=== PATIENT | male | born 1995 | race Caucasian/White ===

== ENCOUNTER 2021-01-01 12:15 | Emergency (ER) | payer OTHER ==
[2021-01-01] MEDS ORDERED: Lidocaine 1% 30 ML SDV INJECT ONE (12:30)
--- NOTE | 2021-01-03 06:44 | EDM.PDOC ---
ED HPI GENERAL MEDICAL PROBLEM - General Chief Complaint: Laceration Stated Complaint: LACERATION TO HAND Time Seen by Provider: 01/01/21 12:27 Source of Information: Reports: Patient History Limitations: Reports: No Limitations - History of Present Illness INITIAL COMMENTS - FREE TEXT/NARRATIVE: Pt. sustained a laceration to top of L hand while working on a [employer]. This happened shortly before coming to ER. Denies any problems with moving the fingers. He denies any injury elsewhere. Onset: Today Location: Reports: Upper Extremity, Left Left Hand Pain Score (Numeric/FACES): 1 - Related Data Allergies Allergy/AdvReac Type Severity Reaction Status Date / Time amoxicillin Allergy Rash Verified 01/01/21 13:06 Home Meds: Home Meds . [No Known Home Meds] 01/01/21 [History] Past Medical History - Past Health History Medical/Surgical History: Denies Medical/Surgical History Social & Family History - Tobacco Use Tobacco Use Status *Q: Never Tobacco User ED ROS GENERAL - Review of Systems Review Of Systems: Comprehensive ROS is negative, except as noted in HPI. ED EXAM, GENERAL - Physical Exam Exam: See Below Exam Limited By: No Limitations General Appearance: Alert, WD/WN, No Apparent Distress Extremities: Other (3 cm laceration to dorsum of L hand. No injury to underlying structures. CMS intact. ROM within normal limits.) ED GENERAL MEDICAL PROCEDURES - Laceration/Wound Repair Left Dorsal Hand Lac/wound length in cm: 3 Appearance: Subcutaneous Distal NVT: Neuro & Vascular Intact, No Tendon Injury Anesthetic Type: Local Local Anesthesia - Lidocaine (Xylocaine): 1% Plain Local Anesthetic Volume: 4cc Skin Prep: Chlorhexidine (Hibiciens), Saline Saline irrigation (cc's): 1,000 Exploration/Debridement/Repair: Wound Explored Closed with: Sutures Suture Size: 4-0 Course - Vital Signs Last Recorded V/S: Last Vital Signs Temp 36.4 C 01/01/21 12:20 Pulse 64 01/01/21 12:20 Resp 16 01/01/21 12:20 BP 147/87 H 01/01/21 12:20 Pulse Ox 99 01/01/21 12:20 - Orders/Labs/Meds Meds: Medications Discontinued Medications Generic Name Dose Route Start Last Admin Trade Name Freq PRN Reason Stop Dose Admin Lidocaine HCl 30 ml 01/01/21 12:30 01/01/21 12:35 Lidocaine 1% 30 Ml Sdv INJECT 01/01/21 12:31 30 ml ONETIME ONE Administration Departure - Departure Time of Disposition: 13:05 Disposition: Home, Self-Care 01 Clinical Impression: Laceration - Discharge Information Instructions: Laceration Care, Adult Referrals: PCP,None [Primary Care Provider] - Forms: ED Department Discharge Additional Instructions: Sutures out in 12 days. This can be done in the clinic. Keep dressing on/laceration dry for 24 hours. Then keep open to air as much as possible. Return if you have any redness, swelling, or discharge from the area. Sepsis Event Note (ED) - Evaluation Sepsis Screening Result: No Definite Risk - Problem List Review Problem List Initiated/Reviewed/Updated: Yes - Assessment/Plan Plan: Sutures out in 12 days. This can be done in the clinic. Keep dressing on/laceration dry for 24 hours. Then keep open to air as much as possible. Return if you have any redness, swelling, or discharge from the area.
== END 2021-01-01 13:05 | disposition home or self-care (01) ==
LOC: VM.ED 12:15
DX: S61.412A Laceration without foreign body of left hand, initial encounter (principal); Z88.0 Allergy status to penicillin; W26.8XXA Contact with other sharp object(s), not elsewhere classified, initial encounter
CPT/HCPCS: 12002; 99282-25